=== PATIENT | female | born 1990 | race Hispanic/Latino ===

== ENCOUNTER 2018-07-24 05:22 | Emergency (ER) | payer OTHER, SELFPAY ==
[2018-07-24 06:10] LABS: Absolute Lymphocytes (CBC) 3.4 K/uL (0.7-4.9); Absolute Monocytes 0.7 K/uL (0.1-1.3); Absolute Neutrophil 9.2 K/uL (1.8-8.0); Basophils % 0.5 % (0-1.3); Eosinophils % 5.2 % (0-4.4); Hematocrit 39.8 % (36.0-45.0); Lymphocytes % 24.1 % (15.3-44.8); MCH 30.8 pg (27.0-35.0); MCV 88.3 fL (80-100); Monocytes % 5.3 % (3.3-12.3); RBC Red Blood Cell Count 4.51 M/uL (3.86-4.86)
[2018-07-24 06:25] LABS: ALT/SGPT 50 U/L (12-78); AST/SGOT 26 U/L (15-37); Albumin 3.2 g/dL (3.4-5.0); Alkaline Phosphatase 60 U/L (45-117); Amylase Level 52 U/L (25-115); BUN Blood Urea Nitrogen 13 mg/dL (7-18); Bicarbonate 25 mmol/L (21-32); Bilirubin Direct < 0.1 mg/dL (0-0.2); Bilirubin Total 0.1 mg/dL (0.2-1.0); Glucose Level 104 mg/dL (74-106); Lipase 150 U/L (73-393); Potassium 4.1 mmol/L (3.5-5.1); Protein, Total 7.5 g/dL (6.4-8.2); Sodium Level 138 mmol/L (136-145)
[2018-07-24] MEDS ORDERED: NA CHLORIDE 0.9% 1,000 ML ONE (06:32)
[2018-07-24] MEDS ORDERED: PROMETHAZINE 25 MG/ML VIAL ONE (06:32)
[2018-07-24] MEDS ORDERED: KETOROLAC 30 MG/ML INJ ONE (06:38)
--- NOTE | 2018-07-24 07:31 | ER ---
Nurse's Notes [facility] Name: Victorina Mccormack Age: 28 yrs Sex: Female : 1990 Arrival Date: 07/24/2018 Time: 05:23 Bed 16 Private MD: Diagnosis: Cholelithiasis;Upper abdominal pain, unspecified Presentation: 07/24 05:31 Presenting complaint: Patient states: "Woke up about 0300 this morning with abdominal ao pain." Patient point at epigastric area. Patient positive for nausea and denies vomiting or fever. Patient report pain radiates to the right side of the the back. Transition of care: patient was not received from another setting of care. Onset of symptoms was July 24, 2018 at 03:00. Risk Assessment: Do you want to hurt yourself or someone else? Patient reports no desire to harm self or others. Initial Sepsis Screen: Does the patient meet any 2 criteria? No. Patient's initial sepsis screen is negative. Does the patient have a suspected source of infection? No. Patient's initial sepsis screen is negative. Care prior to arrival: None. 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 - Social history:: Smoking status: Patient/guardian denies using tobacco, Patient uses alcohol, occasionally. Patient/guardian denies using street drugs. - Ebola Screening: : Patient negative for fever greater than or equal to 101.5 degrees Fahrenheit, and additional compatible Ebola Virus Disease symptoms Patient denies exposure to infectious person Patient denies travel to an Ebola-affected area in the 21 days before illness onset. Screenin:37 Abuse screen: Denies threats or abuse. Denies injuries from another. Nutritional ao screening: No deficits noted. Tuberculosis screening: No symptoms or risk factors identified. Fall Risk None identified. Assessment: 05:35 General: Appears in no apparent distress. uncomfortable, Behavior is calm, cooperative, ao appropriate for age. Pain: Complains of pain in abdomen Pain currently is 8 out of 10 on a pain scale. Neuro: Level of Consciousness is awake, alert, obeys commands, Oriented to person, place, time, situation, Appropriate for age Moves all extremities. Full function Speech is normal, Facial symmetry appears normal, Pupils are PERRLA. Cardiovascular: Capillary refill < 3 seconds Patient's skin is warm and dry. Cardiovascular: Denies chest pain, shortness of breath. Respiratory: Airway is patent Respiratory effort is even, unlabored, Respiratory pattern is regular, symmetrical. GI: Abdomen is non-distended, Bowel sounds present X 4 quads. Abd is soft and non tender X 4 quads. Reports upper abdominal pain, nausea. : No signs and/or symptoms were reported regarding the genitourinary system. EENT: No signs and/or symptoms were reported regarding the EENT system. Derm: Skin is intact, Skin is pink, warm \\T\\ dry. normal, Skin temperature is warm. Musculoskeletal: Circulation, motion, and sensation intact. Range of motion: intact in all extremities. 07:18 General: Appears comfortable, Behavior is calm, cooperative. Pain: Complains of pain in aa5 epigastric area Pain radiates to right upper quadrant and right mid back Pain currently is 4 out of 10 on a pain scale. Quality of pain is described as dull, sharp, Pain began this morning Is intermittent. Neuro: Level of Consciousness is awake, alert, obeys commands, Oriented to person, place, time, situation. Cardiovascular: Heart tones S1 S2 present Rhythm is regular. Respiratory: Airway is patent Respiratory effort is even, unlabored, Respiratory pattern is regular, symmetrical. GI: Abdomen is round non-distended, Bowel sounds present X 4 quads. Abd is soft and non tender X 4 quads. Patient currently denies diarrhea, nausea, vomiting. : No signs and/or symptoms were reported regarding the genitourinary system. EENT: No signs and/or symptoms were reported regarding the EENT system. Derm: Skin is pink, warm \\T\\ dry. Musculoskeletal: Range of motion: intact in all extremities. 07:18 Reassessment: Patient states feeling better. Awaiting US results. . aa5 08:10 Reassessment: Patient is alert, oriented x 3, equal unlabored respirations, skin aa5 warm/dry/pink. 08:10 Pain: Pain currently is 3 out of 10 on a pain scale. aa5 Vital Signs: 05:33 BP 129 / 89; Pulse 72; Resp 18; Temp 97.8(O); Pulse Ox 97% on R/A; Weight 71.67 kg (R); ao Height 5 ft. 0 in. (152.40 cm); Pain 8/10; 06:03 BP 130 / 97; Pulse 68; Resp 16; Pulse Ox 99% on R/A; mt 07:17 BP 124 / 81; Pulse 65; Resp 16 S; Pulse Ox 100% on R/A; Pain 4/10; aa5 07:57 BP 110 / 75; Pulse 65; Resp 16 S; Pulse Ox 100% on R/A; aa5 05:33 Body Mass Index 30.86 (71.67 kg, 152.40 cm) ao ED Course: 05:23 Patient arrived in ED. ds1 05:31 Dami Wilkerson, RN is Primary Nurse. ao 05:33 Triage completed. ao 05:35 Arm band placed on right wrist. Patient placed in an exam room, on a stretcher, on ao pulse oximetry, Patient notified of wait time. 05:37 Patient has correct armband on for positive identification. Pulse ox on. NIBP on. ao 05:45 Abdominal pain workup initiated per nursing protocol. ao 05:55 Inserted saline lock: 20 gauge in left antecubital area, using aseptic technique. Blood ao collected. 06:05 Germaine Floyd FNP-C is PHCP. snw 06:05 Clif Dodson MD is Attending Physician. snw 07:00 Ultrasound completed. Patient tolerated well. aa4 07:04 US Abdomen Limited In Process Unspecified. EDMS 07:17 Jimena Dawson, RN is Primary Nurse. aa5 07:30 Irvin Rizzo MD is Referral Physician. snw 08:10 No provider procedures requiring assistance completed. IV discontinued, intact, aa5 bleeding controlled, No redness/swelling at site. Pressure dressing applied. Administered Medications: 06:31 Drug: NS 0.9% 1000 ml Route: IV; Rate: 1000 ml; Site: left antecubital; ao 07:30 Follow up: IV Status: Completed infusion aa5 06:32 Drug: Phenergan 12.5 mg Route: IVP; Site: left antecubital; ao 07:03 Follow up: Response: No adverse reaction ao 06:36 Drug: TORadol 30 mg Route: IVP; Site: left antecubital; ao 07:03 Follow up: Response: No adverse reaction; Pain is decreased ao 07:54 Drug: Rocephin - (cefTRIAXone) 1 grams {Note: administered IVP per pharmacy protocol at aa5 this time.} Route: IVPB; Infused Over: 30 mins; Site: left antecubital; 07:59 Follow up: Response: No adverse reaction aa5 Outcome: 07:30 Discharge ordered by . michaelle 08:10 Discharged to home ambulatory, with family. aa5 08:10 Condition: improved 08:10 Discharge instructions given to patient, Instructed on discharge instructions, follow up and referral plans. medication usage, Demonstrated understanding of instructions, follow-up care, medications, Prescriptions given X 4. 08:17 Patient left the ED. aa5 Signatures: Dispatcher [employer] EDMS Germaine Floyd FNP-C CREATIVE SERVICES INTERN-Marci Ventura ds1 Samanta Walters aa4 Jimena Dawson RN RN aa5 Dami Wilkerson RN RN Margaret Marroquin in Corrections: (The following items were deleted from the chart) 05:38 05:31 Presenting complaint: Patient states: "Woke up about 0300 this morning with ao abdominal pain." Patient point at epigastric area. Patient positive for nausea and denies vomiting or fever. ao
--- NOTE | 2018-07-24 07:31 | EDPHYS ---
Physician Documentation [facility] Name: Victorina Mccormack Age: 28 yrs Sex: Female : 1990 Arrival Date: 07/24/2018 Time: 05:23 Bed 16 Private MD: ED Physician Clif Dodson HPI: 07/24 06:38 This 28 yrs old Female presents to ER via Ambulatory with complaints of snw Abdominal Pain. 06:38 The patient presents with abdominal pain in the right upper quadrant. Onset: The snw symptoms/episode began/occurred suddenly, last night. The symptoms radiate to right back. Associated signs and symptoms: Pertinent positives: nausea. The symptoms are described as sharp, shooting. Severity of pain: At its worst the pain was severe in the emergency department the pain has improved. The patient has not experienced similar symptoms in the past. The patient has not recently seen a physician, and does not have an established primary care provider. 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 - Social history:: Smoking status: Patient/guardian denies using tobacco, Patient uses alcohol, occasionally. Patient/guardian denies using street drugs. - Ebola Screening: : Patient negative for fever greater than or equal to 101.5 degrees Fahrenheit, and additional compatible Ebola Virus Disease symptoms Patient denies exposure to infectious person Patient denies travel to an Ebola-affected area in the 21 days before illness onset. ROS: 06:37 Constitutional: Negative for fever, chills, and weight loss, Eyes: Negative for injury, snw pain, redness, and discharge, ENT: Negative for injury, pain, and discharge, Neck: Negative for injury, pain, and swelling, Cardiovascular: Negative for chest pain, palpitations, and edema, Respiratory: Negative for shortness of breath, cough, wheezing, and pleuritic chest pain, Back: Negative for injury and pain, : Negative for injury, bleeding, discharge, and swelling, MS/Extremity: Negative for injury and deformity, Skin: Negative for injury, rash, and discoloration, Neuro: Negative for headache, weakness, numbness, tingling, and seizure. 06:37 Abdomen/GI: Positive for abdominal pain, nausea, radiation through to back, Negative for vomiting, diarrhea, constipation. Exam: 06:37 Constitutional: This is a well developed, well nourished patient who is awake, alert, snw and in no acute distress. Head/Face: Normocephalic, atraumatic. Eyes: Pupils equal round and reactive to light, extra-ocular motions intact. Lids and lashes normal. Conjunctiva and sclera are non-icteric and not injected. Cornea within normal limits. Periorbital areas with no swelling, redness, or edema. ENT: Nares patent. No nasal discharge, no septal abnormalities noted. Tympanic membranes are normal and external auditory canals are clear. Oropharynx with no redness, swelling, or masses, exudates, or evidence of obstruction, uvula midline. Mucous membranes moist. Neck: Trachea midline, no thyromegaly or masses palpated, and no cervical lymphadenopathy. Supple, full range of motion without nuchal rigidity, or vertebral point tenderness. No Meningismus. Chest/axilla: Normal chest wall appearance and motion. Nontender with no deformity. No lesions are appreciated. Cardiovascular: Regular rate and rhythm with a normal S1 and S2. No gallops, murmurs, or rubs. Normal PMI, no JVD. No pulse deficits. Respiratory: Lungs have equal breath sounds bilaterally, clear to auscultation and percussion. No rales, rhonchi or wheezes noted. No increased work of breathing, no retractions or nasal flaring. Back: No spinal tenderness. No costovertebral tenderness. Full range of motion. Skin: Warm, dry with normal turgor. Normal color with no rashes, no lesions, and no evidence of cellulitis. MS/ Extremity: Pulses equal, no cyanosis. Neurovascular intact. Full, normal range of motion. Neuro: Awake and alert, GCS 15, oriented to person, place, time, and situation. Cranial nerves II-XII grossly intact. Motor strength 5/5 in all extremities. Sensory grossly intact. Cerebellar exam normal. Normal gait. Psych: Awake, alert, with orientation to person, place and time. Behavior, mood, and affect are within normal limits. 06:37 Abdomen/GI: Inspection: abdomen appears normal, Bowel sounds: normal, Palpation: mild abdominal tenderness, in the right upper quadrant, Indicators: Han's sign is positive. Vital Signs: 05:33 BP 129 / 89; Pulse 72; Resp 18; Temp 97.8(O); Pulse Ox 97% on R/A; Weight 71.67 kg (R); ao Height 5 ft. 0 in. (152.40 cm); Pain 8/10; 06:03 BP 130 / 97; Pulse 68; Resp 16; Pulse Ox 99% on R/A; mt 07:17 BP 124 / 81; Pulse 65; Resp 16 S; Pulse Ox 100% on R/A; Pain 4/10; aa5 07:57 BP 110 / 75; Pulse 65; Resp 16 S; Pulse Ox 100% on R/A; aa5 05:33 Body Mass Index 30.86 (71.67 kg, 152.40 cm) ao MDM: 06:05 Patient medically screened. snw 07:33 Data reviewed: vital signs, nurses notes. Data interpreted: Pulse oximetry: on room air snw is 100 %. Interpretation: normal. Counseling: I had a detailed discussion with the patient and/or guardian regarding: the historical points, exam findings, and any diagnostic results supporting the discharge/admit diagnosis, the presence of at least one elevated blood pressure reading (>120/80) during this emergency department visit, lab results, radiology results, the need for outpatient follow up, to return to the emergency department if symptoms worsen or persist or if there are any questions or concerns that arise at home. Special discussion: Based on the patient's Hx, exam, and Dx evaluation, there is no indication for emergent surgery or inpatient Tx. It is understood by the patient/guardian that if the Sx's persist or worsen they need to return immediately for re-evaluation. Based on the history and exam findings, there is no indication for further emergent testing or inpatient evaluation. I discussed with the patient/guardian the need to see the general surgeon for further evaluation of the symptoms. 07/24 05:45 Order name: Amylase, Serum; Complete Time: 06:27 ao 07/24 05:45 Order name: Basic Metabolic Panel; Complete Time: 06:27 ao 07/24 05:45 Order name: CBC with Diff; Complete Time: 06:24 ao 07/24 05:45 Order name: Creatinine for Radiology; Complete Time: 06:27 ao 07/24 05:45 Order name: Hepatic Function; Complete Time: 06:27 ao 07/24 05:45 Order name: Lipase; Complete Time: 06:27 ao 07/24 05:45 Order name: Urine Microscopic Only ao 07/24 06:37 Order name: US Abdomen Limited snw 07/24 06:45 Order name: Urine Dipstick--Ancillary (enter results) 2 07/24 06:45 Order name: Urine --Ancillary (enter results) mw2 07/24 05:45 Order name: IV Saline Lock; Complete Time: 05:55 ao 07/24 05:45 Order name: Labs collected and sent; Complete Time: 05:55 ao 07/24 05:45 Order name: Urine Dipstick-Ancillary (obtain specimen); Complete Time: 06:16 ao 07/24 06:06 Order name: Urine Test (obtain specimen); Complete Time: 06:16 snw 07/24 06:28 Order name: NPO; Complete Time: 06:31 snw Administered Medications: 06:31 Drug: NS 0.9% 1000 ml Route: IV; Rate: 1000 ml; Site: left antecubital; ao 07:30 Follow up: IV Status: Completed infusion aa5 06:32 Drug: Phenergan 12.5 mg Route: IVP; Site: left antecubital; ao 07:03 Follow up: Response: No adverse reaction ao 06:36 Drug: TORadol 30 mg Route: IVP; Site: left antecubital; ao 07:03 Follow up: Response: No adverse reaction; Pain is decreased ao 07:54 Drug: Rocephin - (cefTRIAXone) 1 grams {Note: administered IVP per pharmacy protocol at aa5 this time.} Route: IVPB; Infused Over: 30 mins; Site: left antecubital; 07:59 Follow up: Response: No adverse reaction [facility] Disposition: 19:12 Co-signature as Attending Physician, Clif Dodson MD. rn Disposition: 07/24/18 07:30 Discharged to Home. Impression: Cholelithiasis, Upper abdominal pain, unspecified. - Condition is Stable. - Discharge Instructions: Abdominal Pain, Adult, Fat and Cholesterol Restricted Diet, Hypertension, Cholelithiasis. - Prescriptions for cefdinir 300 mg Oral capsule - take 2 capsule by ORAL route once daily for 10 days; 20 capsule. Bentyl 20 mg Oral Tablet - take 1 tablet by ORAL route every 6 hours As needed; 20 tablet. Zofran 4 mg Oral Tablet - take 1 tablet by ORAL route every 12 hours As needed; 6 tablet. Diclofenac Sodium 75 mg Oral Tablet Sustained Release - take 1 tablet by ORAL route 2 times per day; 30 tablet. - Work release form, Medication Reconciliation Form, Thank You Letter, Antibiotic Education, Prescription Opioid Use form. - Follow up: Emergency Department; When: As needed; Reason: Worsening of condition. Follow up: Irvin Rizzo MD; When: 2 - 3 days; Reason: Recheck today's complaints, Continuance of care. Signatures: Dispatcher [employer] EDMS Germaine Floyd, INVESTMENT RECOVERY TECHNICIAN-C INVESTMENT RECOVERY TECHNICIAN-Csnw Clif Dodson MD MD rn Calderon, Audri RN RN aa5 Dami Wilkerson RN RN ao Corrections: (The following items were deleted from the chart) 08:17 07:30 07/24/2018 07:30 Discharged to Home. Impression: Cholelithiasis; Upper abdominal aa5 pain, unspecified. Condition is Stable. Forms are Medication Reconciliation Form, Thank You Letter, Antibiotic Education, Prescription Opioid Use. Follow up: Emergency Department; When: As needed; Reason: Worsening of condition. Follow up: Irvin Rizzo; When: 2 - 3 days; Reason: Recheck today's complaints, Continuance of care. snw
[2018-07-24] MEDS ORDERED: CEFTRIAXONE/SWI 1gm 1 GM/10 ML SYR ONE (07:56)
[2018-07-24 08:08] LABS: Urine Bacteria <20 /HPF (<20); Urine Culture Reflex Order NOT NEEDED; Urine RBC <5 /HPF (NONE SEEN)
--- NOTE | 2018-07-24 09:30 | RAD REPORT ---
EXAM DESCRIPTION: US - Abdomen Exam Limited - 07/24/2018 7:03 am CLINICAL HISTORY: Abdominal pain. COMPARISON: None. FINDINGS: Multiple gallstones are present. One is lodged within the neck measuring 18 millimeters. T he gallbladder wall is not thickened The biliary tree is normal caliber. IMPRESSION: Cholelithiasis without evidence cholecystitis. A stone appears lodged in the gallbladder neck
[2018-07-24 09:48] LABS: Urine Blood TRACE (NEG); Urine Glucose NEGATIVE (NEG); Urine Protein NEGATIVE (NEG)
== END 2018-07-24 08:17 | disposition home or self-care (01) ==
LOC: ER 05:22
DX: K80.20 Calculus of gallbladder without cholecystitis without obstruction (principal)
CPT/HCPCS: 36415; 76705; 80048; 80076; 81003; 81015; 81025; 82150; 83690; 85025; 96361; 96374; 96375; 99284; J0696; J2550; J7030